=== PATIENT | female | born 2000 | race Hispanic/Latino ===

== ENCOUNTER 2023-05-04 08:15 | Emergency (ER) | payer OTHER ==
[2023-05-04] MEDS ORDERED: Acetaminophen/Codeine 30-300mg Tablet ONE (08:40)
== END 2023-05-04 10:30 | disposition home or self-care (01) ==
LOC: NAV ERS 08:15
DX: S52.502A Unspecified fracture of the lower end of left radius, initial encounter for closed fracture (principal); S30.0XXA Contusion of lower back and pelvis, initial encounter; F17.210 Nicotine dependence, cigarettes, uncomplicated; W17.89XA Other fall from one level to another, initial encounter
CPT/HCPCS: 25605; 72220